=== PATIENT | male | born 1945 | race Caucasian/White ===

== ENCOUNTER → 2021-06-07 15:49 | Outpatient (REF) | payer MEDICARE, SELFPAY | LOC: ANHLAB 15:49 | PROVIDERS: PCP Internal Medicine; Visit Provider Nurse Practitioner | DX: C44.519 Basal cell carcinoma of skin of other part of trunk (principal) | CPT/HCPCS: 88305 ==

== ENCOUNTER → 2021-07-25 07:49 | Outpatient (REF) | payer MEDICARE, SELFPAY | LOC: ANHLAB 07:49 | PROVIDERS: PCP Internal Medicine; Visit Provider Nurse Practitioner | DX: C44.519 Basal cell carcinoma of skin of other part of trunk (principal) | CPT/HCPCS: 88305; 88331 ==